=== PATIENT | female | born 1980 | race Hispanic/Latino ===

== ENCOUNTER 2017-08-13 10:15 | Observation (INO) | payer BC ==
--- NOTE | 2017-08-13 10:11 | HP ---
Surgical procedure scheduled for 08/17/2017. HISTORY OF PRESENT ILLNESS: Ms. Machuca is a 37-year-old female, G4, P3, A1, with a long history of heavy and painful menstrual cycles. She reports saturating a pad in 1 hour during th e first several days of her menstrual flow. The cycles are occurring every 21-24 days and she flows for 7 days total. She has used a nonsteroidals and Lysteda for the heavy flow, but it did not help h er much. She is done with childbearing and has had a previous tubal ligation. She was offered trial of ablation, but desires definitive surgical therapy. PAST MEDICAL HISTORY: Negative. PAST SURGICAL HISTORY: An appendectomy, tubal ligation, and D&C, also laparoscopic cholecystectomy. SOCIAL HISTORY: Nonsmoker, no alcohol use. She is and works publishing manager. She does have a chi ld that has affected with chronic illness, which requires a good deal of her time also. ALLERGIES: She has no known drug allergies. FAMILY HISTORY: Essential hypertension, hyperlipidemia, and diabetes. PHYSICAL EXAMINATION: VITAL SIGNS: Her blood pressure is 120/86, heart rate is regular in its rate of 74, respirations 16. GENERAL: Height 60 inches, weight 217 pounds with BMI 42.4. HEENT: Within normal limits. CHEST: Clear to auscultation. HEART: Regular rate and rhythm. S1, S2 heart sounds, no murmurs, rubs or gallops. ABDOMEN: Soft, nontender, nondistended with no palpable masses. PELVIC: Vulva and vagina had no lesions. Cervix had no lesions. Uterus was mildly tender, not enla rged. Adnexa was nontender with no masses. Ultrasound obtained showed uterus measuring 8.5 x 4.4 x 5.5 cm. There was a heterogenous changes in the myometrium which suggestive of adenomyosis. There w as no well-defined fibroid seen. Adnexa showed no adnexal masses or abnormalities. Endometrial thic kness was 3.7 mm. ASSESSMENT: This is a 37-year-old female, G4, P3, A1, with a long history of severe d ysmenorrhea, menorrhagia and pelvic pain. Transvaginal ultrasound and clinical history is highly sug gestive of adenomyosis. She has had a previous tubal ligation and cholecystectomy. She has had a tr ial of nonsteroidals along with Lysteda with minimal improvement. PLAN: Proceed further with definitive surgical therapy with robotic total laparoscopic hysterectomy and bilateral salpingectomy. Risks and benefits of procedure have been discussed in detail, and she is scheduled for surgery on 08/17/2017.
[2017-08-17] MEDS ORDERED: Gabapentin 300 MG CAP ONE (10:59)
[2017-08-17] MEDS ORDERED: CEFAZOLIN/Water 2 GM/20 ML SYRINGE ONE (11:00)
[2017-08-17] MEDS ORDERED: CeleCOXIB 100 MG CAP ONE (11:00)
[2017-08-17] MEDS ORDERED: Famotidine/PF 20 mg/2ml Vial SLOW IVP SCH (11:15)
[2017-08-17] MEDS ORDERED: Dexamethasone 20 MG/5 ML VIAL ONE (11:59)
[2017-08-17] MEDS ORDERED: Ondansetron HCl/PF 4 MG/2 ML Vial ONE ×2 (11:59→13:42)
[2017-08-17] MEDS ORDERED: Lidocaine 1% PF 5 ML VIAL ONE (11:59)
[2017-08-17] MEDS ORDERED: Glycopyrrolate 0.2 MG/ML 5 ML SYRINGE ONE ×2 (11:59)
[2017-08-17] MEDS ORDERED: PROPOFOL 200 MG/20 ML VIAL ONE (11:59)
[2017-08-17] MEDS ORDERED: Midazolam HCl 2 mg/2 ml Vial ONE ×2 (13:00→13:42)
[2017-08-17] MEDS ORDERED: Bupivacaine/Epinephrine 0.25% 30 ML VIAL ONE (13:42)
[2017-08-17] MEDS ORDERED: Fentanyl 250 MCG/5 ML VIAL ONE (13:42)
[2017-08-17] MEDS ORDERED: Fentanyl 100 MCG/2 ML VIAL ONE ×3 (16:16→17:12)
[2017-08-17] MEDS ORDERED: Ondansetron HCl/PF 4 MG/2 ML Vial IVP PRN ×2 (16:20→16:23)
[2017-08-17] MEDS ORDERED: Promethazine HCl 25 MG/ML VIAL IM PRN ×2 (16:20→16:23)
[2017-08-17] MEDS ORDERED: Promethazine HCl 25 MG/ML VIAL SLOW IVP PRN (16:20)
[2017-08-17] MEDS ORDERED: Bisacodyl 10 MG SUPP PR PRN (16:23)
[2017-08-17] MEDS ORDERED: Morphine 4 MG/ML VIAL SLOW IVP PRN (16:23)
[2017-08-17] MEDS ORDERED: traMADol HCl 50 MG TAB PO PRN ×2 (16:23)
[2017-08-17] MEDS ORDERED: diphenhydrAMINE 25 MG CAP PO PRN (16:23)
[2017-08-17] MEDS ORDERED: Promethazine HCl 25 MG/ML VIAL ONE (16:55)
[2017-08-17] MEDS: Ketorolac Tromethamine 30 MG/ML VIAL IVP SCH (18:02)
[2017-08-17] MEDS: Acetaminophen 1,000 MG in Premix Bag 1 BAG IVPB SCH (18:32)
[2017-08-17] MEDS: Morphine 5 MG/ML SYRINGE SLOW IVP PRN (21:24)
[2017-08-17] MEDS: Simethicone Chewable 80 MG TAB PO PRN (21:24)
[2017-08-17] MEDS: Lactated Ringer's 1,000 ML IV SCH ×2 (22:56→23:17)
[2017-08-18] MEDS: Ketorolac Tromethamine 30 MG/ML VIAL IVP SCH ×3 (00:35→13:17)
[2017-08-18] MEDS: Acetaminophen 1,000 MG in Premix Bag 1 BAG IVPB SCH ×3 (00:36→12:23)
[2017-08-18] MEDS: Morphine 5 MG/ML SYRINGE SLOW IVP PRN ×2 (01:29→05:12)
--- NOTE | 2017-08-18 03:43 | OP ---
DATE OF PROCEDURE: 08/17/2017 PREOPERATIVE DIAGNOSES: 1. A 37-year-old female, G4, P3, A1 with menorrhagia, dysmenorrhea, and pelvic pain u nresponsive to medical management. 2. Suspect adenomyosis of the uterus. 3. Desires definitive surgical therapy. POSTOPERATIVE DIAGNOSES: 1. A 37-year-old female, G4, P3, A1 with menorrhagia, dysmenorrhea, and pelvic pain u nresponsive to medical management. 2. Suspect adenomyosis of the uterus. 3. Desires definitive surgical therapy. PROCEDURE PERFORMED: Robotic total laparoscopic hysterectomy and bilateral salpingectomy. SURGEON: Katina Park MD SUPERVISOR TYPE BAR AND SEGMENT: Roman Ching MD ANESTHESIA: General endotracheal. ESTIMATED BLOOD LOSS: 50 mL. COMPLICATIONS: None. COUNTS: Correct x2. ANTIBIOTICS: Two grams of Ancef applications chemist to OR. PATHOLOGY: Uterus, cervix, and bilateral fallopian tubes. FINDINGS: 1. Normal-appearing ovaries and tubes, previous tubal ligation noted. 2. Boggy adenomyotic-appearing uterus. 3. Clear urine present in Stevenson catheter post-procedure and bladder was watertight to distention ove r 300 mL of fluid. 4. Bilateral ureteral peristalsis visualized post procedure. DISPOSITION: Recovery room, stable. DESCRIPTION OF OPERATIVE PROCEDURE: The patient previously received informed consent in regard to [facility]. She was taken back to the operating room, where she received a general endotracheal anestheti c agent without complications. She was placed in the dorsal lithotomy position with the use of Tray stirrups, prepped and draped in usual sterile fashion. At this time, a sidearm speculum was placed in the vagina and the Stevenson catheter had been placed. Anterior lip of the cervix was grasped with si ngle-tooth tenaculum. The uterus sounded to 9 cm and a size 8-cm CHRISTIAN uterine manipulator with 4.0-c m cervical cup was placed. The tenaculum and speculum were then removed. Attention was then turned to the abdomen, where perspective trocar sites were infiltrated with 0.5% Marcaine with epinephrine. A 10-mm supraumbilical incision was made. Veress needle entered into the peritoneal cavity. Patien t pressure was less than 5 mm. Patient pressure was then distended up to 15 mm with approximately 4 liters of carbon dioxide gas. Veress needle was then removed and then a 12-mm trocar was placed. Th e diagnostic laparoscope from the robot was then introduced through the trocar sleeve and proper entr y was confirmed. Additional bilateral lower quadrant 8-mm robotic trocars were placed under laparosc opic guidance along with the right upper quadrant 11-mm assistant wrestling coach port. The patient was placed in Tr endelenburg position and then the robot was docked in usual fashion. I proceeded to carry out the pr ocedure from the operative console, whereas my assistants remained at the bedside. The uterus was elevated from the pelvis. The bilateral adnexal structures were visualized with the p reviously mentioned findings. The right fallopian tube was grasped at the fimbria by my assistant wrestling coach, epi kim then the bipolar fenestrated device was utilized to coagulate around the mesosalpinx with incision of this coagulated area with monopolar scissors until the right fallopian tube was removed at the co rnua. It was removed through upper trocar assistant wrestling coach port. Then, the right utero-ovarian ligaments w ere coagulated and transected. Serial coagulation and transection was carried out hugging close to u terine specimen until the right round ligament was reached. It was coagulated and transected, and th en the anterior leaf of the broad ligament was entered developing the vesicouterine peritoneal bladde r flap in a layering technique, atraumatically dissecting the bladder past the cervical vaginal angle . The right uterine vessels were skeletonized and coagulated at internal cervical os region. This w as repeated in likewise fashion on the patient's left side. Again, the fimbriated end of the fallopi an tube was grasped by my assistant wrestling coach. The mesosalpinx of the tube was coagulated. With serial coagul ation and transection, the left fallopian tube was then removed through the right upper quadrant assi stant port and the utero-ovarian ligaments were then coagulated and transected. Serial coagulation o f the broad ligament, hugging close again to the uterine specimen was carried out until the left roun d ligament was reached. Again, it was coagulated and transected. Anterior leaf of the broad ligamen t was entered. Vesicouterine peritoneum was then taken down in layering technique, taking the bladde r atraumatically past the cervical vaginal margin. The left uterine vessels again were skeletonized and they were coagulated at internal cervical os region. The posterior peritoneum was also incised a round the cervix dissecting and layering this area preparing for the posterior colpotomy. Once this had been secured, the anterior colpotomy was then developed using cautery with the monopolar scissors , cutting from 12 to 3 and 12 to 9 o'clock direction. The uterine vessels at 9 o'clock position agai n were coagulated with bipolar fenestrated. Then, the posterior colpotomy was completed from 6 to 3 and 6 to 9 in likewise fashion. The uterus was then delivered at the vaginal vault. The monopolar s cissors were switched out for an [place] needle taxi driver supervisor. This allowed for grasping the vaginal cuff and areas of oozing and bleeding were made hemostatic with bipolar fenestrated cautery. My assistant wrestling coach th en brought down a V-Loc suture and the vaginal cuff was closed in double-layer fashion starting at th e right angle of the vaginal cuff, full thickness closure, to the left vaginal cuff back towards the midline. Hemostasis was confirmed. The pelvis was then irrigated and the pressure was dropped down to less than 7 mmHg. Again, all the cuff sites and pedicle sites were hemostatic. Pelvis again was irrigated and suctioned, confirming hemostasis. The excess carbon dioxide gas was then released from the abdomen after the robot had been undocked and trocar sleeves were removed. An 0 Vicryl fascial stitch was placed in [id number] stitch fashion in the umbilical incision. The remainder of the trocar sites were closed with 4-0 Monocryl subcuticular and Dermabond was placed. The vaginal cuff w as inspected and no vaginal bleeding was noted. The Stevenson catheter was draining clear urine. Bladde r had been distended during the anterior colpotomy confirming that no leakage or bladder injury was n oted intraoperatively. The patient was then awakened from anesthesia, transferred to recovery room i n stable condition.
[2017-08-18 05:51] LABS: Hemoglobin 10.8 g/dL (12.0-16.0); Mean Corpuscular HGB CONC 31.9 g/dL (32.0-36.0); Mean Corpuscular Hemoglobin 25.8 pg (27.0-31.0); Mean Corpuscular Volume 80.9 fl (81.0-99.0); Mean Platelet Volume 9.9 fL (7.4-10.4); Platelet Count 227 thou/uL (130-400); Red Blood Cell (RBC) Count 4.19 mill/uL (4.20-5.40); White Blood Cell (WBC) Count 12.9 thou/uL (4.8-10.8)
--- NOTE | 2017-08-18 08:02 | PDOC.EVN ---
Event Note - Event Note Event Note: no nausea. still having some pelvic pain. voiding ok. O: afebrile VSS. Hct 33.8% abdomen is soft and non disteneded. trochar sites clean and dry. no vaginal bleeding. A/P: post op day 1 from robotic hyst. [facility]. D/c today. F/u 2 and 6 weeks.
[2017-08-18] MEDS: HYDROcodone/Acetaminophen 10/325 mg Tablet PO PRN ×2 (08:46→15:11)
[2017-08-18] MEDS: Simethicone Chewable 80 MG TAB PO PRN (08:50)
[2017-08-18 08:54] VITALS: BP 106/55; TEMP 98.3
[2017-08-18] MEDS ORDERED: HYDROcodone/Acetaminophen 10/325 mg Tablet PO SCH (11:15)
[2017-08-18] MEDS: Lactated Ringer's 1,000 ML IV SCH (11:29)
[2017-08-18] MEDS ORDERED: Ibuprofen 800 MG TAB PO SCH (21:00)
[2017-08-23] MEDS ORDERED: Ibuprofen 800 MG TAB PO SCH (09:00)
== END 2017-08-18 15:45 | disposition home or self-care (01) ==
LOC: EDSTATUS 08-17 10:15 → SURG A 08-17 10:45 → INTOOBSV 08-17 10:45 → 3SE 08-17 17:07
PROVIDERS: ADMIT Obstetrics & Gynecology; ATTEND Obstetrics & Gynecology
PROC: 0UT94ZZ Resection of Uterus, Percutaneous Endoscopic Approach (ICD-10-PCS; principal; 2017-08-17)
PROC: 0UT74ZZ Resection of Bilateral Fallopian Tubes, Percutaneous Endoscopic Approach (ICD-10-PCS; 2017-08-17)
DX: N80.0 Endometriosis of uterus (principal); Z90.89 Acquired absence of other organs; Z98.51 Tubal ligation status; Z90.49 Acquired absence of other specified parts of digestive tract
CPT/HCPCS: 36415; 85027; 88307; 96361; 96374; 96375; 96376; J2270; G0378; J0131; J1100; J1885; J2001; J2250; J2405; J2550; J2704; J3010; S0028

== ENCOUNTER 2017-08-13 10:17 | Outpatient (CLI) | payer BC ==
[2017-08-13 11:23] LABS: Hemoglobin 12.3 g/dL (12.0-16.0); Mean Corpuscular HGB CONC 31.9 g/dL (32.0-36.0); Mean Corpuscular Hemoglobin 25.3 pg (27.0-31.0); Mean Corpuscular Volume 79.4 fl (81.0-99.0); Mean Platelet Volume 8.7 fL (7.4-10.4); Platelet Count 301 thou/uL (130-400); RBC Distribution Width 14.8 % (11.5-14.5); Red Blood Cell (RBC) Count 4.87 mill/uL (4.20-5.40); White Blood Cell (WBC) Count 9.1 thou/uL (4.8-10.8)
== END 2017-08-13 10:18 | disposition home or self-care (01) ==
LOC: LABBT 10:17
PROVIDERS: ATTEND Obstetrics & Gynecology
DX: Z01.812 Encounter for preprocedural laboratory examination (principal); N92.0 Excessive and frequent menstruation with regular cycle; R10.2 Pelvic and perineal pain; N94.6 Dysmenorrhea, unspecified; N80.0 Endometriosis of uterus
CPT/HCPCS: 85027; 86850; 86900; 86901

== ENCOUNTER 2022-11-06 16:14 | Inpatient (IN) | payer BC ==
[2022-11-06 17:26] LABS: #Eosinphils 0.3 thou/uL (0.0-0.7); #Monocytes 0.5 thou/uL (0.11-0.59); #Neutrophils 6.2 thou/uL (1.40-6.50); %Basophils 0.2 % (0.0-1.0); %Eosinophils 3.2 % (0.0-10.0); %Lymphocytes 28.4 % (21.0-51.0); %Monocytes 4.7 % (0.0-10.0); %Neutrophils 63.1 % (42.0-75.0); Hematocrit 45.1 % (36.0-47.0); Hemoglobin 14.8 g/dL (12.0-16.0); Mean Corpuscular HGB CONC 32.8 g/dL (32.0-36.0); Mean Corpuscular Hemoglobin 27.9 pg (27.0-31.0); Mean Corpuscular Volume 85.1 fl (78.0-98.0); Mean Platelet Volume 11.5 fL (7.4-10.4); Platelet Count 240 10x3/uL (130-400); RBC Distribution Width 13.1 % (11.5-14.5); White Blood Cell (WBC) Count 9.8 10x3/uL (4.8-10.8)
[2022-11-06 17:54] LABS: ALT (SGPT) 28 U/L (8-55); AST (SGOT) 22 U/L (5-34); Albumin 3.9 g/dL (3.5-5.0); Alkaline Phosphatase 61 U/L (40-110); Anion Gap 14 mmol/L (10-20); BUN (Urea Nitrogen) 10 mg/dL (7.0-18.7); Bilirubin, Total 0.4 mg/dL (0.2-1.2); Calc. Creatinine Clearance 0 mL/min (70-130); Calcium 9.4 mg/dL (7.8-10.44); Carbon Dioxide 26 mmol/L (22-29); Chloride 103 mmol/L (98-107); Estimated GFR 100; Globulin 3.5 g/dL (2.4-3.5); Glucose 92 mg/dL (70-105); Protein, Total 7.4 g/dL (6.0-8.3); Sodium 139 mmol/L (136-145)
[2022-11-06 18:03] LABS: D-Dimer Test 2.33 *mcg/mL (0.27-0.43)
[2022-11-06] MEDS ORDERED: Acetaminophen 500 MG TAB ONE ×2 (18:47→18:51)
[2022-11-06] MEDS ORDERED: Aspirin Chewable 81 MG TAB ONE (18:47)
[2022-11-06] MEDS ORDERED: Ondansetron PF 4 MG/2 ML Vial ONE (18:47)
[2022-11-06] MEDS ORDERED: Nitroglycerin 2% Ointment 1 INCH/1 GM Packet ONE (18:47)
[2022-11-06] MEDS ORDERED: Calcium Carbonate 500 MG ChewTAB PO PRN (19:40)
[2022-11-06 19:58] LABS: Troponin I Less than 0.010 ng/mL (< 0.028)
[2022-11-06] MEDS: Famotidine 20 MG TAB PO SCH (21:25)
[2022-11-06] MEDS ORDERED: Famotidine 20 MG TAB ONE (22:22)
[2022-11-06 22:25] VITALS: BMI 39.7
[2022-11-06] MEDS ORDERED: Acetaminophen 325 MG TAB ONE (22:27)
[2022-11-06] MEDS ORDERED: Acetaminophen 325 MG Suppository ONE (22:27)
[2022-11-06] MEDS: Acetaminophen 325 MG TAB PO PRN (22:29)
[2022-11-06 23:35] LABS: Troponin I Less than 0.010 ng/mL (< 0.028)
[2022-11-07] MEDS ORDERED: Nitroglycerin 0.4 MG TAB (25 Tab Bottle) SL SCH (02:15)
[2022-11-07 03:27] LABS: #Eosinphils 0.4 thou/uL (0.0-0.7); #Monocytes 0.4 thou/uL (0.11-0.59); #Neutrophils 4.7 thou/uL (1.40-6.50); %Basophils 0.3 % (0.0-1.0); %Eosinophils 4.3 % (0.0-10.0); %Lymphocytes 38.3 % (21.0-51.0); %Monocytes 4.8 % (0.0-10.0); Hematocrit 40.6 % (36.0-47.0); Hemoglobin 13.2 g/dL (12.0-16.0); Mean Corpuscular HGB CONC 32.5 g/dL (32.0-36.0); Mean Corpuscular Hemoglobin 27.9 pg (27.0-31.0); Mean Corpuscular Volume 85.8 fl (78.0-98.0); Mean Platelet Volume 11.5 fL (7.4-10.4); Platelet Count 221 10x3/uL (130-400); Red Blood Cell (RBC) Count 4.73 mill/uL (4.20-5.40)
[2022-11-07 03:50] LABS: Magnesium 1.8 mg/dL (1.6-2.6)
[2022-11-07 04:02] LABS: Anion Gap 13 mmol/L (10-20); BUN (Urea Nitrogen) 12 mg/dL (7.0-18.7); Calc. Creatinine Clearance 133 mL/min (70-130); Calcium 8.6 mg/dL (7.8-10.44); Carbon Dioxide 25 mmol/L (22-29); Chloride 107 mmol/L (98-107); Estimated GFR 91; Glucose 97 mg/dL (70-105); Potassium 4.1 mmol/L (3.5-5.1); Sodium 141 mmol/L (136-145)
[2022-11-07 11:05] LABS: Pregnancy Test - Urine (BHCG) Negative (Negative); Pregu Control Background? CLEAR/WHITE (CLR/WHITE); Pregu Control Bar Appear? YES (CONTROL BAR); Specific Gravity 1.057 (1.002-1.036)
[2022-11-07] MEDS ORDERED: Regadenoson 0.4 MG/5 ML SYRINGE ONE (11:25)
[2022-11-07] MEDS ORDERED: Nitroglycerin 0.4 MG TAB (25 Tab Bottle) ONE (11:57)
[2022-11-07] MEDS: Ondansetron ODT 4 MG TAB PO PRN (11:58)
[2022-11-07] MEDS: Acetaminophen 325 MG TAB PO PRN (12:00)
[2022-11-07] MEDS: Aspirin Chewable 81 MG TAB PO SCH (12:01)
[2022-11-07] MEDS: Loratadine 10 MG TAB PO SCH (12:01)
[2022-11-07] MEDS: FLUoxetine HCl 20 MG CAP PO SCH (12:01)
[2022-11-07] MEDS: Famotidine 20 MG TAB PO SCH ×2 (12:01→20:55)
[2022-11-07] MEDS ORDERED: Lorazepam 1 MG TAB PO SCH (16:15)
[2022-11-07] MEDS: Atorvastatin Calcium 20 MG TAB PO SCH (20:55)
[2022-11-08 07:09] LABS: #Eosinphils 0.4 thou/uL (0.0-0.7); #Monocytes 0.6 thou/uL (0.11-0.59); #Neutrophils 4.8 thou/uL (1.40-6.50); %Basophils 0.2 % (0.0-1.0); %Eosinophils 4.8 % (0.0-10.0); %Lymphocytes 33.6 % (21.0-51.0); %Monocytes 6.4 % (0.0-10.0); %Neutrophils 54.7 % (42.0-75.0); Hemoglobin 13.2 g/dL (12.0-16.0); Mean Corpuscular HGB CONC 32.2 g/dL (32.0-36.0); Mean Corpuscular Hemoglobin 27.8 pg (27.0-31.0); Mean Corpuscular Volume 86.3 fl (78.0-98.0); Mean Platelet Volume 11.4 fL (7.4-10.4); Platelet Count 205 10x3/uL (130-400); RBC Distribution Width 13.1 % (11.5-14.5); Red Blood Cell (RBC) Count 4.75 mill/uL (4.20-5.40); White Blood Cell (WBC) Count 8.8 10x3/uL (4.8-10.8)
[2022-11-08 07:32] LABS: ALT (SGPT) 19 U/L (8-55); AST (SGOT) 13 U/L (5-34); Albumin 3.5 g/dL (3.5-5.0); Alkaline Phosphatase 53 U/L (40-110); Anion Gap 9 mmol/L (10-20); BUN (Urea Nitrogen) 12 mg/dL (7.0-18.7); Bilirubin, Total 0.3 mg/dL (0.2-1.2); Calc. Creatinine Clearance 152 mL/min (70-130); Calcium 8.8 mg/dL (7.8-10.44); Carbon Dioxide 27 mmol/L (22-29); Chloride 106 mmol/L (98-107); Estimated GFR 106; Globulin 2.9 g/dL (2.4-3.5); Glucose 109 mg/dL (70-105); Protein, Total 6.4 g/dL (6.0-8.3); Sodium 138 mmol/L (136-145)
[2022-11-08] MEDS: Acetaminophen 325 MG TAB PO PRN ×3 (08:07→20:32)
[2022-11-08] MEDS: Loratadine 10 MG TAB PO SCH (08:07)
[2022-11-08] MEDS: FLUoxetine HCl 20 MG CAP PO SCH (08:07)
[2022-11-08] MEDS: Aspirin Chewable 81 MG TAB PO SCH (08:07)
[2022-11-08] MEDS: Famotidine 20 MG TAB PO SCH ×2 (08:07→20:29)
[2022-11-08] MEDS ORDERED: Lactated Ringer's 500 ML IV SCH (13:00)
[2022-11-08] MEDS: Atorvastatin Calcium 20 MG TAB PO SCH (20:29)
[2022-11-09 05:02] LABS: #Eosinphils 0.5 thou/uL (0.0-0.7); #Monocytes 0.6 thou/uL (0.11-0.59); #Neutrophils 4.3 thou/uL (1.40-6.50); %Basophils 0.3 % (0.0-1.0); %Eosinophils 5.3 % (0.0-10.0); %Lymphocytes 40.7 % (21.0-51.0); %Monocytes 6.8 % (0.0-10.0); %Neutrophils 46.6 % (42.0-75.0); Hematocrit 40.9 % (36.0-47.0); Hemoglobin 13.4 g/dL (12.0-16.0); Mean Corpuscular HGB CONC 32.8 g/dL (32.0-36.0); Mean Corpuscular Volume 85.4 fl (78.0-98.0); Mean Platelet Volume 11.7 fL (7.4-10.4); Platelet Count 207 10x3/uL (130-400); RBC Distribution Width 13.1 % (11.5-14.5); Red Blood Cell (RBC) Count 4.79 mill/uL (4.20-5.40); White Blood Cell (WBC) Count 9.3 10x3/uL (4.8-10.8)
[2022-11-09 05:26] LABS: ALT (SGPT) 19 U/L (8-55); AST (SGOT) 14 U/L (5-34); Albumin 3.5 g/dL (3.5-5.0); Alkaline Phosphatase 51 U/L (40-110); Anion Gap 11 mmol/L (10-20); BUN (Urea Nitrogen) 9 mg/dL (7.0-18.7); Bilirubin, Total 0.3 mg/dL (0.2-1.2); Calc. Creatinine Clearance 146 mL/min (70-130); Calcium 8.8 mg/dL (7.8-10.44); Carbon Dioxide 27 mmol/L (22-29); Chloride 106 mmol/L (98-107); Estimated GFR 101; Globulin 2.9 g/dL (2.4-3.5); Glucose 96 mg/dL (70-105); Protein, Total 6.4 g/dL (6.0-8.3); Sodium 140 mmol/L (136-145)
[2022-11-09] MEDS: Ondansetron ODT 4 MG TAB PO PRN (07:46)
[2022-11-09] MEDS ORDERED: Lidocaine 2% Viscous Solution 10 ML, Aluminum & Magnesium Hydroxide 30 ML SSW SCH (08:30)
[2022-11-09] MEDS ORDERED: Ondansetron PF 4 MG/2 ML Vial IVP SCH (08:45)
[2022-11-09 08:47] LABS: Troponin I Less than 0.010 ng/mL (< 0.028)
[2022-11-09] MEDS: Aspirin Chewable 81 MG TAB PO SCH (09:16)
[2022-11-09] MEDS: Famotidine 20 MG TAB PO SCH ×2 (09:16→20:24)
[2022-11-09] MEDS: FLUoxetine HCl 20 MG CAP PO SCH (09:16)
[2022-11-09] MEDS: Loratadine 10 MG TAB PO SCH (09:16)
[2022-11-09] MEDS: Acetaminophen 325 MG TAB PO PRN (13:41)
[2022-11-09] MEDS ORDERED: Ketorolac Tromethamine 30 MG/ML VIAL IVP PRN (16:25)
[2022-11-09] MEDS ORDERED: Ondansetron PF 4 MG/2 ML Vial IVP PRN (17:06)
[2022-11-09] MEDS: Atorvastatin Calcium 20 MG TAB PO SCH (20:24)
[2022-11-10 05:25] LABS: #Eosinphils 0.5 thou/uL (0.0-0.7); #Monocytes 0.6 thou/uL (0.11-0.59); #Neutrophils 4.9 thou/uL (1.40-6.50); %Basophils 0.3 % (0.0-1.0); %Eosinophils 4.6 % (0.0-10.0); %Lymphocytes 38.8 % (21.0-51.0); %Monocytes 6.2 % (0.0-10.0); %Neutrophils 49.7 % (42.0-75.0); Hematocrit 41.4 % (36.0-47.0); Hemoglobin 13.3 g/dL (12.0-16.0); Mean Corpuscular HGB CONC 32.1 g/dL (32.0-36.0); Mean Corpuscular Hemoglobin 27.7 pg (27.0-31.0); Mean Corpuscular Volume 86.1 fl (78.0-98.0); Mean Platelet Volume 11.4 fL (7.4-10.4); Platelet Count 208 10x3/uL (130-400); RBC Distribution Width 13.2 % (11.5-14.5); Red Blood Cell (RBC) Count 4.81 mill/uL (4.20-5.40); White Blood Cell (WBC) Count 9.8 10x3/uL (4.8-10.8)
[2022-11-10 05:52] LABS: ALT (SGPT) 16 U/L (8-55); AST (SGOT) 12 U/L (5-34); Albumin 3.4 g/dL (3.5-5.0); Alkaline Phosphatase 49 U/L (40-110); Anion Gap 11 mmol/L (10-20); BUN (Urea Nitrogen) 13 mg/dL (7.0-18.7); Bilirubin, Total 0.3 mg/dL (0.2-1.2); Calc. Creatinine Clearance 133 mL/min (70-130); Calcium 8.7 mg/dL (7.8-10.44); Carbon Dioxide 25 mmol/L (22-29); Chloride 106 mmol/L (98-107); Estimated GFR 91; Globulin 2.7 g/dL (2.4-3.5); Glucose 91 mg/dL (70-105); Potassium 3.7 mmol/L (3.5-5.1); Protein, Total 6.1 g/dL (6.0-8.3); Sodium 138 mmol/L (136-145)
[2022-11-10] MEDS: Aspirin Chewable 81 MG TAB PO SCH (08:36)
[2022-11-10] MEDS: Famotidine 20 MG TAB PO SCH (08:36)
[2022-11-10] MEDS: FLUoxetine HCl 20 MG CAP PO SCH (08:36)
[2022-11-10] MEDS: Loratadine 10 MG TAB PO SCH (08:36)
[2022-11-10] MEDS ORDERED: PROPOFOL 200 MG/20 ML VIAL ONE (12:45)
[2022-11-10 14:28] VITALS: BP 124/69
[2022-11-10 16:28] VITALS: TEMP 97.3
== END 2022-11-10 18:11 | disposition home or self-care (01) | DRG 392 ==
LOC: ERS 16:14 → ERHOLD 21:30 → 2SE 11-07 02:19 → OBSVTOIN 11-09 08:39
PROVIDERS: ADMIT Family Medicine; ATTEND Family Medicine
DX: K21.9 Gastro-esophageal reflux disease without esophagitis (principal); F41.9 Anxiety disorder, unspecified; I10 Essential (primary) hypertension; E11.9 Type 2 diabetes mellitus without complications; E78.5 Hyperlipidemia, unspecified; F32.A Depression, unspecified; I08.1 Rheumatic disorders of both mitral and tricuspid valves; Z90.49 Acquired absence of other specified parts of digestive tract; Z90.710 Acquired absence of both cervix and uterus; Z79.899 Other long term (current) drug therapy; Z98.51 Tubal ligation status; Z98.890 Other specified postprocedural states
CPT/HCPCS: 36415; 36416; 70450; 70551; 71045; 71275; 78452; 80048; 80053; 81025; 83090; 83735; 83880; 84443; 84484; 85025; 85379; 85610; 85730; 93005; 93010; 93017; 93306; 94760; 96374; A9500; G0378; J1885; J2405; J2704; J2785; J7120; Q0162